=== PATIENT | female | born 1990 | race Caucasian/White ===

== ENCOUNTER 2018-01-25 05:13 | Inpatient (IN) | payer OTHER, MEDICAID ==
[2018-01-25] MEDS ORDERED: Sodium Chloride 0.9% 10 ML Syringe FLUSH PRN (05:24)
[2018-01-25] MEDS ORDERED: Sodium Chloride 0.9% 2.5 ML Syringe FLUSH PRN (05:24)
[2018-01-25] MEDS ORDERED: Oxytocin/0.9 % Sodium Chloride 30 UNIT/500 ML BAG IV SCH (05:30)
[2018-01-25] MEDS ORDERED: Citric Acid/Sodium Citrate Solution 30 ML Cup PO SCH (05:30)
[2018-01-25] MEDS: Lactated Ringers 1,000 ML IV SCH ×2 (05:46→06:19)
[2018-01-25] MEDS ORDERED: Morphine PF 1 MG/ML Amp ONE (07:22)
[2018-01-25] MEDS ORDERED: Phenylephrine/Normal Saline 100 MCG/ML 10 ML Syringe ONE (07:29)
[2018-01-25] MEDS ORDERED: Oxytocin 10 Units/1 ML SDV ONE (07:29)
[2018-01-25] MEDS ORDERED: Clindamycin Phosphate in D5W 900 MG in Premix Bag 1 BAG IV ONE ×4 (07:30→07:34)
[2018-01-25] MEDS ORDERED: fentaNYL 100 MCG/2 ML SDV IVPUSH PRN (08:26)
[2018-01-25] MEDS ORDERED: Acetaminophen/oxyCODONE 325-5 MG Tab PO PRN (08:26)
[2018-01-25] MEDS ORDERED: Nalbuphine 10 MG/ML 10 ML MDV IVPUSH PRN ×2 (08:26→09:31)
[2018-01-25] MEDS ORDERED: ePHEDrine 50 MG/ML SDV ONE (08:42)
[2018-01-25] MEDS ORDERED: Ondansetron 4 MG/2 ML SDV IV PRN (08:55)
[2018-01-25] MEDS ORDERED: Aluminum Hydroxide/Magnesium Hydroxide/Simethicone Susp 30 ML Cup PO PRN (08:55)
[2018-01-25] MEDS ORDERED: Lanolin 100% Cream 7 GM Tube TOP PRN (08:55)
[2018-01-25] MEDS ORDERED: Bisacodyl 10 MG Supp RECTAL PRN (08:55)
[2018-01-25] MEDS ORDERED: Simethicone 80 MG Tab.Chew PO PRN (08:55)
[2018-01-25] MEDS ORDERED: diphenhydrAMINE 50 MG/ML SDV IVPUSH PRN (08:55)
[2018-01-25] MEDS ORDERED: Lactated Ringers 1,000 ML IV SCH (09:00)
[2018-01-25] MEDS ORDERED: Docusate Sodium 100 MG Cap PO SCH (09:00)
--- NOTE | 2018-01-25 09:07 | PCM.OPNOTE ---
- General Post-Op/Procedure Note Date of Surgery/Procedure: 01/25/18 Operative Procedure(s): Repeat LTCS Findings: Term female APGARs 9, 9 weight 3150 gm. Intact placenta with 3V cord. Normal appearing pelvis. Pre Op Diagnosis: 39 week IUP. Previous c section, desires repeat Post-Op Diagnosis: Same Anesthesia Technique: Spinal Primary Surgeon: Zaria Santacruz Fluid Replacement, Intraop: 1,000 EBL in mLs: 500 Complications: none known Condition: Good Free Text/Narrative:: Dictation [id number]
[2018-01-25] MEDS: Ketorolac 30 MG/ML SDV IVPUSH SCH ×3 (09:21→20:59)
--- NOTE | 2018-01-25 09:29 | PCM.POSTAN ---
POST ANESTHESIA ASSESSMENT - VITAL SIGNS Pulse Rate: 48 SaO2: 97 Resp Rate: 10 Blood Pressure: 116/68 - RESPIRATORY Respiratory Status: Respiratory Rate WNL, Airway Patent, O2 Saturation Stable - CARDIOVASCULAR CV Status: Pulse Rate WNL, Blood Pressure Stable - GASTROINTESTINAL GI Status: No Symptoms - PAIN Pain Score: 0 (spinal still active) - POST OP HYDRATION Hydration Status: Adequate & Stable
[2018-01-25] MEDS ORDERED: Naloxone 0.4 MG/ML Syringe IVPUSH PRN (09:31)
--- NOTE | 2018-01-25 12:00 | OR ---
SURGEON: Zaria Santacruz M.D. DATE OF PROCEDURE: 01/25/2018 PREOPERATIVE DIAGNOSES: 1. Thirty-nine week intrauterine . 2. Previous section, desires repeat. POSTOPERATIVE DIAGNOSES: 1. Thirty-nine week intrauterine . 2. Previous section, desires repeat. PROCEDURE: Repeat low-transverse section. ANESTHESIA: Spinal. ESTIMATED BLOOD LOSS: 500 mL. FLUIDS: 2000 mL crystalloid in OR. COMPLICATIONS: None known. FINDINGS: Term female. score 9 at 1 minute, 9 at 5 minutes. Weight of 3150 g in delivery, intact placenta, 3-vessel cord. Normal-appearing pelvis. DISPOSITION: to nursery, mom in PACU stable. PROCEDURE IN DETAIL: Sarah is a 27-year-old, G2, P1, at 39 weeks' gestational age, who presents today for scheduled repeat delivery. Risks of the procedure has been discussed with her. Proper consent obtained. The patient was taken to the operating room where she underwent spinal anesthetic, was then placed in dorsal supine position with leftward tilt. SCDs to lower extremities, Aparicio to gravity. She was prepped and draped in the usual sterile fashion. Received prophylactic antibiotic. Time-out was performed. Anesthesia was tested and found to be adequate. Previous Pfannenstiel scar was now excised. Subcu tissue was incised down to the level of the rectus fascia, which was incised in midline, lateralized on either side sharply and bluntly. The superior aspect of fascia was tented upward, dissected sharply and bluntly from underlying muscles. Similar aspect performed on the inferior aspect of the fascia. Rectus muscles were in midline and peritoneum was entered. Rectus muscle and peritoneum were now lateralized bluntly. Uterine position and position palpated. Self-retaining retractor now gently placed. Uterovesical reflection was visualized. Bladder flap was created sharply and bluntly. Bladder was mobilized away from lower uterine segment. Low-transverse hysterotomy was performed. Uterine cavity was entered with blunt end of scalpel. Hysterotomy was lateralized bluntly. Amniotomy was performed, clear fluid was returned. The 's head was flexed, delivered from the pelvis. Fundal pressure was applied. The 's head was delivered followed by anterior shoulder, posterior shoulder, and remainder of body without difficulty. The 's oropharynx and nares bulb suctioned, cord was clamped x2 and cut. was handed off to attending nursing staff. Cord arterial, cord venous, cord blood sampling was obtained. The placenta was now delivered. Uterine cavity cleared of all clot and debris. Hysterotomy was repaired using 0 Vicryl in continuous running locked fashion followed by a re-imbricating layer. Area of oozing in the midline was re-plicated with [id number] suture. Hemostasis thereafter evident. Posterior aspect of the uterus inspected, no defects or hematomas found be forming. Region was well irrigated and suction dried. Colonic gutters were cleared of all clot and debris, well irrigated and suction dried. Hysterotomy was once again inspected, found to be hemostatic. Self-retaining retractor gently removed. Bladder blade was placed. Hysterotomy was again inspected and found to be hemostatic. Rectus muscles and peritoneum were now reapproximated using 0 Vicryl with inverted mattress suture technique. Anterior aspect of the muscle, posterior aspect of the fascia closely inspected. Any areas of oozing were cauterized. The rectus fascia was reapproximated using 0 Vicryl in continuous running fashion, beginning laterally on each side and tied in the midline. Subcutaneous tissue was well irrigated, suction dried. Any areas of oozing were cauterized. Subcutaneous tissue was once again copiously irrigated. Subcutaneous tissue inspected, found to be hemostatic. The skin edges were reapproximated using 3-0 Vicryl on a Eusebio needle in subcuticular fashion followed by re-imbrication with 1/2-inch Steri-Strips and Mastisol. Uterus remained firm. Sponge, instrument, needle counts correct x2. Hemostasis appeared evident. The patient tolerated the procedure well overall. She will go to PACU in stable condition an to nursery. AMENA / LAZARO /[id number]
[2018-01-25] MEDS ORDERED: Promethazine 25 MG/ML SDV IM ONE (13:44)
--- NOTE | 2018-01-25 20:54 | PCM.SN ---
- Free Text/Narrative Note: Doing well overall, pain is controlled. Had nausea earlier, but this has subsided. She is tolerating liquids. VS are stable. Encouraged ambulation this evening. Continue postoperative cares.
[2018-01-26] MEDS: Ketorolac 30 MG/ML SDV IVPUSH SCH ×2 (02:58→09:18)
--- NOTE | 2018-01-26 08:09 | PCM.PNPP ---
<Juliana Anand - Last Filed: 01/26/18 08:05> - General Info Date of Service: 01/26/18 Functional Status: Reports: Pain Controlled, Tolerating Diet, Ambulating, Urinating - Review of Systems General: Denies: Fever, Weakness, Fatigue Pulmonary: Denies: Shortness of Breath, Pleuritic Chest Pain, Cough Cardiovascular: Denies: Chest Pain, Palpitations, Dyspnea on Exertion Gastrointestinal: Denies: Abdominal Pain Genitourinary: Denies: Dysuria - General Info Date of Service: 01/26/18 - Patient Data Vital Signs - Most Recent: Last Vital Signs Temp 36.5 C 01/26/18 05:00 Pulse 55 L 01/26/18 07:00 Resp 16 01/26/18 07:00 BP 94/50 L 01/26/18 05:00 Pulse Ox 98 01/26/18 07:00 Weight - Most Recent: 69.003 kg I&O - Last 24 Hours: Intake & Output 01/25/18 01/26/18 01/26/18 22:59 06:59 14:59 Intake Total 827 500 Output Total 700 3450 Balance 127 -2950 Lab Results - Last 24 Hours: Laboratory Results - last 24 hr 01/25/18 01/26/18 Range/Units 08:20 05:10 Hgb 9.4 L (12.0-16.0) g/dL Hct 29.9 L (36.0-46.0) % Cord ABG pH 7.366 (7.18-7.38) Cord ABG Base Excess -2 (-10--2) Cord VBG pH 7.368 (7.25-7.45) Cord VBG Base Excess -3 (-10--2) Med Orders - Current: Current Medications Al Hydroxide/Mg Hydroxide (Mag-Al Plus) 30 ml PO Q8H PRN PRN Reason: Heartburn Bisacodyl (Dulcolax) 10 mg RECTAL .ONCE PRN PRN Reason: Constipation Citric Acid/Sodium Citrate (Bicitra Solution) 30 ml PO .ONCE [facility] Last Admin: 01/25/18 07:54 Dose: 30 ml Diphenhydramine HCl (Benadryl) 25 mg IVPUSH Q6H PRN PRN Reason: Itching or Nausea Emollient Ointment (Lansinoh Hpa) 0 gm TOP ASDIRECTED PRN PRN Reason: Sore Nipples Last Admin: 01/25/18 10:18 Dose: 7 gm Fentanyl (Sublimaze) 50 mcg IVPUSH Q5M PRN PRN Reason: Pain (severe 7-10) Stop: 01/26/18 08:27 Lactated Ringer's (Ringers, Lactated) 1,000 mls @ 500 mls/hr IV .BOLUS [facility] Last Admin: 01/25/18 06:19 Dose: 500 mls/hr Oxytocin/Sodium Chloride (Oxytocin 30 Unit/500 Ml-Ns) 30 unit in 500 mls @ 250 mls/hr IV TITRATE [facility] Lactated Ringer's (Ringers, Lactated) 1,000 mls @ 125 mls/hr IV ASDIRECTED [facility] Last Admin: 01/25/18 11:02 Dose: 125 mls/hr Ibuprofen (Motrin) 800 mg PO Q8H PRN PRN Reason: mild pain or fever Ketorolac Tromethamine (Toradol) 30 mg IVPUSH Q6H [facility] Stop: 01/26/18 09:01 Last Admin: 01/26/18 02:58 Dose: 30 mg Nalbuphine HCl (Nubain) 2.5 mg IVPUSH Q3H PRN PRN Reason: Pruritis Stop: 01/26/18 08:27 Last Admin: 01/25/18 10:19 Dose: 2.5 mg Nalbuphine HCl (Nubain) 5 mg IVPUSH Q3H PRN PRN Reason: Pruritis Stop: 01/26/18 09:32 Naloxone HCl (Narcan) 0.1 mg IVPUSH ONETIME PRN PRN Reason: Respiratory Depression Stop: 01/26/18 09:32 Ondansetron HCl (Zofran) 4 mg IV Q4H PRN PRN Reason: Nausea/Vomiting Last Admin: 01/25/18 12:36 Dose: 4 mg Oxycodone/Acetaminophen (Percocet 325-5 Mg) 1 tab PO ONETIME PRN PRN Reason: Pain (moderate 4-6) Oxycodone/Acetaminophen (Percocet 325-5 Mg) 1 tab PO Q4H PRN PRN Reason: Pain (moderate 4-6) Oxycodone/Acetaminophen (Percocet 325-5 Mg) 2 tab PO Q4H PRN PRN Reason: Pain (moderate 4-6) Simethicone (Simethicone) 80 mg PO Q4H PRN PRN Reason: Gas Sodium Chloride (Saline Flush) 10 ml FLUSH ASDIRECTED PRN PRN Reason: Keep Vein Open Sodium Chloride (Saline Flush) 2.5 ml FLUSH ASDIRECTED PRN PRN Reason: Keep Vein Open Discontinued Medications Docusate Sodium (Colace) 100 mg PO BID [facility] Last Admin: 01/25/18 13:35 Dose: Not Given Ephedrine Sulfate (Ephedrine Sulfate) Confirm Administered Dose 50 mg .ROUTE .STK-MED ONE Stop: 01/25/18 08:43 Clindamycin Phosphate 900 mg/ (Premix) 50 mls @ 100 mls/hr IV ASDIRECTED ONE Stop: 01/25/18 07:59 Last Admin: 01/25/18 13:37 Dose: Not Given Clindamycin Phosphate 900 mg/ (Premix) 50 mls @ 100 mls/hr IV ASDIRECTED ONE Stop: 01/25/18 07:59 Last Admin: 01/25/18 13:35 Dose: Not Given Morphine Sulfate (Duramorph Pf) Confirm Administered Dose 1 mg .ROUTE .STK-MED ONE Stop: 01/25/18 07:23 Oxytocin (Pitocin) Confirm Administered Dose 20 unit .ROUTE .STK-MED ONE Stop: 01/25/18 07:30 Phenylephrine HCl (Phenylephrine In Ns 100 Mcg/Ml) Confirm Administered Dose 1 mg .ROUTE .STK-MED ONE Stop: 01/25/18 07:30 Promethazine HCl (Phenergan) 25 mg IM ONETIME ONE Stop: 01/25/18 13:45 Last Admin: 01/25/18 18:26 Dose: Not Given - Interaction Infant Disposition, : in Room with Family Infant Interaction: Holding Feeding: Breastfed Infant; Nursed Well, Continues to Breastfeed Support Person: - Recovery Exam Fundal Tone: Firm Fundal Level: 2 Fingerbreadths Below Umbilicus Fundal Placement: Midline Lochia Amount: Scant Lochia Color: Rubra/Red Perineum Description: Intact, Minimal Bruising/Swelling Episiotomy/Laceration: None Bladder Status: Indwelling Catheter in Place Urinary Elimination: Indwelling Catheter - Exam General: Alert, Oriented Neck: Supple Lungs: Clear to Auscultation, Normal Respiratory Effort Cardiovascular: Regular Rate, Regular Rhythm GI/Abdominal Exam: Normal Bowel Sounds, Soft, Non-Tender, No Distention Extremities: Normal Inspection, Non-Tender, Normal Capillary Refill, Pedal Edema (trace) Skin: Warm, Dry, Intact Psy/Mental Status: Alert - Problem List Review Problem List Initiated/Reviewed/Updated: Yes - Assessment Assessment:: POD #1 s/p RLTCS with minimal pain and lochia. Breast feeding well. Encouraged patient to shower and ambulate halls. - Plan Plan:: Continue routine cares. <Zaria Santacruz - Last Filed: 01/26/18 08:38> - Patient Data Vital Signs - Most Recent: Last Vital Signs Temp 36.5 C 01/26/18 05:00 Pulse 63 01/26/18 08:00 Resp 16 01/26/18 08:00 BP 94/50 L 01/26/18 05:00 Pulse Ox 98 01/26/18 08:00 I&O - Last 24 Hours: Intake & Output 01/25/18 01/26/18 01/26/18 22:59 06:59 14:59 Intake Total 827 500 Output Total 700 3450 Balance 127 -2950 Lab Results - Last 24 Hours: Laboratory Results - last 24 hr 01/25/18 01/26/18 Range/Units 08:20 05:10 Hgb 9.4 L (12.0-16.0) g/dL Hct 29.9 L (36.0-46.0) % Cord ABG pH 7.366 (7.18-7.38) Cord ABG Base Excess -2 (-10--2) Cord VBG pH 7.368 (7.25-7.45) Cord VBG Base Excess -3 (-10--2) Med Orders - Current: Current Medications Al Hydroxide/Mg Hydroxide (Mag-Al Plus) 30 ml PO Q8H PRN PRN Reason: Heartburn Bisacodyl (Dulcolax) 10 mg RECTAL .ONCE PRN PRN Reason: Constipation Citric Acid/Sodium Citrate (Bicitra Solution) 30 ml PO .ONCE [facility] Last Admin: 01/25/18 07:54 Dose: 30 ml Diphenhydramine HCl (Benadryl) 25 mg IVPUSH Q6H PRN PRN Reason: Itching or Nausea Emollient Ointment (Lansinoh Hpa) 0 gm TOP ASDIRECTED PRN PRN Reason: Sore Nipples Last Admin: 01/25/18 10:18 Dose: 7 gm Lactated Ringer's (Ringers, Lactated) 1,000 mls @ 500 mls/hr IV .BOLUS [facility] Last Admin: 01/25/18 06:19 Dose: 500 mls/hr Oxytocin/Sodium Chloride (Oxytocin 30 Unit/500 Ml-Ns) 30 unit in 500 mls @ 250 mls/hr IV TITRATE [facility] Lactated Ringer's (Ringers, Lactated) 1,000 mls @ 125 mls/hr IV ASDIRECTED [facility] Last Admin: 01/25/18 11:02 Dose: 125 mls/hr Ibuprofen (Motrin) 800 mg PO Q8H PRN PRN Reason: mild pain or fever Ketorolac Tromethamine (Toradol) 30 mg IVPUSH Q6H [facility] Stop: 01/26/18 09:01 Last Admin: 01/26/18 02:58 Dose: 30 mg Nalbuphine HCl (Nubain) 5 mg IVPUSH Q3H PRN PRN Reason: Pruritis Stop: 01/26/18 09:32 Naloxone HCl (Narcan) 0.1 mg IVPUSH ONETIME PRN PRN Reason: Respiratory Depression Stop: 01/26/18 09:32 Ondansetron HCl (Zofran) 4 mg IV Q4H PRN PRN Reason: Nausea/Vomiting Last Admin: 01/25/18 12:36 Dose: 4 mg Oxycodone/Acetaminophen (Percocet 325-5 Mg) 1 tab PO ONETIME PRN PRN Reason: Pain (moderate 4-6) Oxycodone/Acetaminophen (Percocet 325-5 Mg) 1 tab PO Q4H PRN PRN Reason: Pain (moderate 4-6) Oxycodone/Acetaminophen (Percocet 325-5 Mg) 2 tab PO Q4H PRN PRN Reason: Pain (moderate 4-6) Simethicone (Simethicone) 80 mg PO Q4H PRN PRN Reason: Gas Sodium Chloride (Saline Flush) 10 ml FLUSH ASDIRECTED PRN PRN Reason: Keep Vein Open Sodium Chloride (Saline Flush) 2.5 ml FLUSH ASDIRECTED PRN PRN Reason: Keep Vein Open Discontinued Medications Docusate Sodium (Colace) 100 mg PO BID [facility] Last Admin: 01/25/18 13:35 Dose: Not Given Ephedrine Sulfate (Ephedrine Sulfate) Confirm Administered Dose 50 mg .ROUTE .STK-MED ONE Stop: 01/25/18 08:43 Fentanyl (Sublimaze) 50 mcg IVPUSH Q5M PRN PRN Reason: Pain (severe 7-10) Stop: 01/26/18 08:27 Clindamycin Phosphate 900 mg/ (Premix) 50 mls @ 100 mls/hr IV ASDIRECTED ONE Stop: 01/25/18 07:59 Last Admin: 01/25/18 13:37 Dose: Not Given Clindamycin Phosphate 900 mg/ (Premix) 50 mls @ 100 mls/hr IV ASDIRECTED ONE Stop: 01/25/18 07:59 Last Admin: 01/25/18 13:35 Dose: Not Given Morphine Sulfate (Duramorph Pf) Confirm Administered Dose 1 mg .ROUTE .STK-MED ONE Stop: 01/25/18 07:23 Nalbuphine HCl (Nubain) 2.5 mg IVPUSH Q3H PRN PRN Reason: Pruritis Stop: 01/26/18 08:27 Last Admin: 01/25/18 10:19 Dose: 2.5 mg Oxytocin (Pitocin) Confirm Administered Dose 20 unit .ROUTE .STK-MED ONE Stop: 01/25/18 07:30 Phenylephrine HCl (Phenylephrine In Ns 100 Mcg/Ml) Confirm Administered Dose 1 mg .ROUTE .STK-MED ONE Stop: 01/25/18 07:30 Promethazine HCl (Phenergan) 25 mg IM ONETIME ONE Stop: 01/25/18 13:45 Last Admin: 01/25/18 18:26 Dose: Not Given - My Orders Last 24 Hours: My Active Orders 01/25/18 08:55 Patient Status [ADT] Routine Ambulate [RC] PER UNIT ROUTINE Communication Order [RC] PER UNIT ROUTINE Communication Order [RC] PER UNIT ROUTINE Intake and Output [RC] Q4H May Shower [RC] ASDIRECTED Notify Provider Intake and Out [RC] ASDIRECTED Notify Provider Vital Signs [RC] ASDIRECTED RT Incentive Spirometry [RC] Q2HWA Vital Signs [RC] PER UNIT ROUTINE Acetaminophen/oxyCODONE [Percocet 325-5 MG] 1 tab PO Q4H PRN Acetaminophen/oxyCODONE [Percocet 325-5 MG] 2 tab PO Q4H PRN Alum Hydrox/Mag Hydrox/Simeth [Mag-Al Plus] 30 ml PO Q8H PRN Bisacodyl [Dulcolax] 10 mg RECTAL .ONCE PRN Ibuprofen [Motrin] 800 mg PO Q8H PRN Lanolin [Lansinoh HPA] See Dose Instructions TOP ASDIRECTED PRN Ondansetron [Zofran] 4 mg IV Q4H PRN Simethicone 80 mg PO Q4H PRN diphenhydrAMINE [Benadryl] 25 mg IVPUSH Q6H PRN Abdominal Binder [OM.PC] Routine Assess Lochia [WOMSER] Per Unit Routine Assess Uterine Involution [WOMSER] Per Unit Routine Breast Pump [WOMSER] Per Unit Routine Heat Therapy [OM.PC] Routine Ice Therapy [OM.PC] Routine Peripheral IV Discontinue [OM.PC] Routine Sequential Compression Device [OM.PC] Per Unit Routine 01/25/18 09:00 Ketorolac [Toradol] 30 mg IVPUSH Q6H Lactated Ringers [Ringers, Lactated] 1,000 ml IV ASDIRECTED 01/25/18 Lunch Regular Diet [DIET] - Plan Plan:: Patient seen and examined--agree with above. Of note, patient can only take liquid or crushed medication.
--- NOTE | 2018-01-26 14:04 | PCM48HPAN ---
Post Anesthesia Note - EVALUATION WITHIN 48HRS OF ANESTHETIC Vital Signs in Normal Range: Yes Patient Participated in Evaluation: Yes Respiratory Function Stable: Yes Airway Patent: Yes Cardiovascular Function Stable: Yes Hydration Status Stable: Yes Pain Control Satisfactory: Yes Nausea and Vomiting Control Satisfactory: Yes Mental Status Recovered: Yes Pulse Rate: 48 Resp Rate: 17 Blood Pressure: 116/68
[2018-01-26] MEDS: Acetaminophen/oxyCODONE 325-5 MG Tab PO PRN ×3 (15:10→23:27)
[2018-01-27] MEDS: Ibuprofen 800 MG Tab PO PRN ×2 (00:38→12:37)
[2018-01-27] MEDS ORDERED: Temazepam 15 MG Cap PO ONE (01:38)
[2018-01-27] MEDS: Acetaminophen/oxyCODONE 325-5 MG Tab PO PRN ×2 (04:38→09:52)
--- NOTE | 2018-01-27 09:25 | PCM.PNPP ---
- General Info Date of Service: 01/27/18 Functional Status: Reports: Pain Controlled, Tolerating Diet, Ambulating, Urinating - Review of Systems General: Reports: Fatigue. Denies: Fever, Weakness Pulmonary: Denies: Shortness of Breath Cardiovascular: Denies: Chest Pain, Palpitations, Lightheadedness Gastrointestinal: Reports: Abdominal Pain (incisional, controlled with oral pain meds), Flatus. Denies: Nausea, Vomiting Genitourinary: Denies: Flank Pain Neurological: Denies: Dizziness, Headache Psychiatric: Reports: No Symptoms - General Info Date of Service: 01/27/18 - Patient Data Vital Signs - Most Recent: Last Vital Signs Temp 36.6 C 01/27/18 08:02 Pulse 79 01/27/18 08:02 Resp 16 01/27/18 08:02 BP 103/63 01/27/18 08:02 Pulse Ox 98 01/27/18 08:02 Weight - Most Recent: 69.003 kg Med Orders - Current: Current Medications Al Hydroxide/Mg Hydroxide (Mag-Al Plus) 30 ml PO Q8H PRN PRN Reason: Heartburn Bisacodyl (Dulcolax) 10 mg RECTAL .ONCE PRN PRN Reason: Constipation Citric Acid/Sodium Citrate (Bicitra Solution) 30 ml PO .ONCE [facility] Last Admin: 01/25/18 07:54 Dose: 30 ml Diphenhydramine HCl (Benadryl) 25 mg IVPUSH Q6H PRN PRN Reason: Itching or Nausea Emollient Ointment (Lansinoh Hpa) 0 gm TOP ASDIRECTED PRN PRN Reason: Sore Nipples Last Admin: 01/25/18 10:18 Dose: 7 gm Lactated Ringer's (Ringers, Lactated) 1,000 mls @ 500 mls/hr IV .BOLUS [facility] Last Admin: 01/25/18 06:19 Dose: 500 mls/hr Oxytocin/Sodium Chloride (Oxytocin 30 Unit/500 Ml-Ns) 30 unit in 500 mls @ 250 mls/hr IV TITRATE [facility] Lactated Ringer's (Ringers, Lactated) 1,000 mls @ 125 mls/hr IV ASDIRECTED [facility] Last Admin: 01/25/18 11:02 Dose: 125 mls/hr Ibuprofen (Motrin) 800 mg PO Q8H PRN PRN Reason: mild pain or fever Last Admin: 01/27/18 00:38 Dose: 800 mg Ondansetron HCl (Zofran) 4 mg IV Q4H PRN PRN Reason: Nausea/Vomiting Last Admin: 01/25/18 12:36 Dose: 4 mg Oxycodone/Acetaminophen (Percocet 325-5 Mg) 1 tab PO ONETIME PRN PRN Reason: Pain (moderate 4-6) Oxycodone/Acetaminophen (Percocet 325-5 Mg) 1 tab PO Q4H PRN PRN Reason: Pain (moderate 4-6) Last Admin: 01/27/18 04:38 Dose: 1 tab Oxycodone/Acetaminophen (Percocet 325-5 Mg) 2 tab PO Q4H PRN PRN Reason: Pain (moderate 4-6) Last Admin: 01/26/18 23:27 Dose: 2 tab Simethicone (Simethicone) 80 mg PO Q4H PRN PRN Reason: Gas Sodium Chloride (Saline Flush) 10 ml FLUSH ASDIRECTED PRN PRN Reason: Keep Vein Open Sodium Chloride (Saline Flush) 2.5 ml FLUSH ASDIRECTED PRN PRN Reason: Keep Vein Open Discontinued Medications Docusate Sodium (Colace) 100 mg PO BID [facility] Last Admin: 01/25/18 13:35 Dose: Not Given Ephedrine Sulfate (Ephedrine Sulfate) Confirm Administered Dose 50 mg .ROUTE .STK-MED ONE Stop: 01/25/18 08:43 Fentanyl (Sublimaze) 50 mcg IVPUSH Q5M PRN PRN Reason: Pain (severe 7-10) Stop: 01/26/18 08:27 Clindamycin Phosphate 900 mg/ (Premix) 50 mls @ 100 mls/hr IV ASDIRECTED ONE Stop: 01/25/18 07:59 Last Admin: 01/25/18 13:37 Dose: Not Given Clindamycin Phosphate 900 mg/ (Premix) 50 mls @ 100 mls/hr IV ASDIRECTED ONE Stop: 01/25/18 07:59 Last Admin: 01/25/18 13:35 Dose: Not Given Ketorolac Tromethamine (Toradol) 30 mg IVPUSH Q6H [facility] Stop: 01/26/18 09:01 Last Admin: 01/26/18 09:18 Dose: 30 mg Morphine Sulfate (Duramorph Pf) Confirm Administered Dose 1 mg .ROUTE .STK-MED ONE Stop: 01/25/18 07:23 Nalbuphine HCl (Nubain) 2.5 mg IVPUSH Q3H PRN PRN Reason: Pruritis Stop: 01/26/18 08:27 Last Admin: 01/25/18 10:19 Dose: 2.5 mg Nalbuphine HCl (Nubain) 5 mg IVPUSH Q3H PRN PRN Reason: Pruritis Stop: 01/26/18 09:32 Naloxone HCl (Narcan) 0.1 mg IVPUSH ONETIME PRN PRN Reason: Respiratory Depression Stop: 01/26/18 09:32 Oxytocin (Pitocin) Confirm Administered Dose 20 unit .ROUTE .STK-MED ONE Stop: 01/25/18 07:30 Phenylephrine HCl (Phenylephrine In Ns 100 Mcg/Ml) Confirm Administered Dose 1 mg .ROUTE .STK-MED ONE Stop: 01/25/18 07:30 Promethazine HCl (Phenergan) 25 mg IM ONETIME ONE Stop: 01/25/18 13:45 Last Admin: 01/25/18 18:26 Dose: Not Given Temazepam (Restoril) 15 mg PO ONETIME ONE Stop: 01/27/18 01:39 Last Admin: 01/27/18 02:21 Dose: 15 mg - Interaction Disposition, : [place] in Room with Family Interaction: Holding Infant Feeding: Breastfed ; Nursed Well, Continues to Breastfeed Support Person: - Recovery Exam Fundal Tone: Firm Fundal Level: 2 Fingerbreadths Below Umbilicus Fundal Placement: Midline Lochia Amount: Scant Lochia Color: Rubra/Red Perineum Description: Intact, Minimal Bruising/Swelling Episiotomy/Laceration: None Bladder Status: Voiding Urinary Elimination: Voided - Exam General: Alert, Oriented Lungs: Normal Respiratory Effort Cardiovascular: Regular Rate, Regular Rhythm GI/Abdominal Exam: Normal Bowel Sounds, Soft Extremities: Pedal Edema (1+). No: Hank's Sign Skin: Warm, Dry, Intact Wound/Incisions: Healing Well, No Drainage. No: Erythema Psy/Mental Status: Alert - Problem List & Annotations (1) delivery delivered SNOMED Code(s): 387377330 Code(s): O82 - ENCOUNTER FOR DELIVERY WITHOUT INDICATION Status: Acute Current Visit: Yes - Problem List Review Problem List Initiated/Reviewed/Updated: Yes - My Orders Last 24 Hours: My Active Orders 01/27/18 09:22 Ready for Discharge [RC] PER UNIT ROUTINE - Assessment Assessment:: POD #2 s/p RLTCS - Plan Plan:: Patient is doing well overall--she is ready to go home today. Discharge instructions reviewed. Infection and bleeding warnings reviewed. Follow up at [facility] 2 and 6 weeks. Discharge to home today.
== END 2018-01-27 13:10 | disposition home or self-care (01) | DRG 766 ==
LOC: MW.OB 05:13
PROVIDERS: ADMIT Obstetrics & Gynecology; ATTEND Obstetrics & Gynecology
PROC: 10D00Z1 Extraction of Products of Conception, Low, Open Approach (ICD-10-PCS; principal; 2018-01-25)
DX: O34.211 Maternal care for low transverse scar from previous cesarean delivery (principal); Z3A.39 39 weeks gestation of pregnancy; Z37.0 Single live birth
CPT/HCPCS: 36415; 59025; 82803; 85014; 85018; 85027; 86850; 86900; 86901; A9270-GY; J1885; J2274; J2300; J2370; J2405; J2590; J7120

== ENCOUNTER 2021-03-14 05:16 | Inpatient (IN) | payer BC, OTHER ==
[2021-03-14] MEDS: Lactated Ringers 1,000 ML IV SCH ×2 (05:50→06:51)
[2021-03-14] MEDS ORDERED: Sodium Chloride 0.9% 2.5 ML Syringe FLUSH PRN (05:56)
[2021-03-14] MEDS ORDERED: Sodium Chloride 0.9% 10 ML Syringe FLUSH PRN (05:56)
[2021-03-14] MEDS ORDERED: Citric Acid/Sodium Citrate Solution 30 ML Cup PO ONE (05:56)
[2021-03-14] MEDS ORDERED: Sodium Chloride 0.9% 10 ML SDV IV PRN (05:56)
[2021-03-14] MEDS ORDERED: Clindamycin Phosphate in D5W 900 MG in Premix Bag 1 BAG IV ONE ×2 (05:56)
[2021-03-14] MEDS ORDERED: Oxytocin/0.9 % Sodium Chloride 30 UNIT/500 ML BAG IV SCH (06:00)
[2021-03-14] MEDS ORDERED: Ondansetron 4 MG/2 ML SDV ONE (07:23)
[2021-03-14] MEDS ORDERED: Oxytocin 10 Units/1 ML SDV ONE (07:23)
[2021-03-14] MEDS ORDERED: Ketorolac 30 MG/ML SDV ONE (07:23)
[2021-03-14] MEDS ORDERED: Morphine PF 10 MG/10 ML SDV ONE (07:24)
[2021-03-14] MEDS ORDERED: fentaNYL 100 MCG/2 ML SDV ONE (07:24)
[2021-03-14] MEDS ORDERED: Octyl 2-Cyanoacrylate 1 Tube ONE (07:37)
--- NOTE | 2021-03-14 07:42 | PCM.PREANE ---
Preanesthetic Assessment - Anesthesia/Transfusion/Family Hx Anesthesia History: Prior Anesthesia Reaction Family History of Anesthesia Reaction: No Transfusion History: No Prior Transfusion(s) Type of Transfusion Reactions: Reports: Unknown - Review of Systems General: No Symptoms Pulmonary: No Symptoms Cardiovascular: No Symptoms Gastrointestinal: No Symptoms Neurological: No Symptoms Other: Reports: None - Physical Assessment NPO Status Date: 03/14/21 NPO Status Time: 00:00 Height: 5 ft 4.17 in Weight: 153 lb 0.013 oz ASA Class: 2 Mental Status: Alert & Oriented x3 Airway Class: Mallampati = 2 Dentition: Reports: Normal Dentition ROM/Head Extension: Full Lungs: Clear to Auscultation, Normal Respiratory Effort Cardiovascular: Regular Rate, Regular Rhythm - Lab Values: Laboratory Last Values Blood Type A POSITIVE 03/13/21 10:36 Antibody Screen NEGATIVE 03/13/21 10:36 - Allergies Allergies/Adverse Reactions: Allergies Allergy/AdvReac Type Severity Reaction Status Date / Time Penicillins Allergy "sister Verified 03/14/21 06:26 reacted to it" - Blood Blood Available: Yes Product(s) Available: PRBC, FFP, Platelets - Anesthesia Plan Pre-Op Medication Ordered: None - Acknowledgements Anesthesia Type Planned: Spinal Pt an Appropriate Candidate for the Planned Anesthesia: Yes Alternatives and Risks of Anesthesia Discussed w Pt/Guardian: Yes Pt/Guardian Understands and Agrees with Anesthesia Plan: Yes PreAnesthesia Questionnaire HEENT History: Reports: Other (See Below) Other HEENT History: wears glasses, contacts Cardiovascular History: Reports: Other (See Below) Other Cardiovascular History: currently has a blood clot in a varicose vein right leg- is taking ASA 81mg and is using heat and elevation Respiratory History: Reports: None Gastrointestinal History: Reports: Hemorrhoids, Other (See Below) Other Gastrointestinal History: new this Genitourinary History: Reports: None PLANT ETIOLOGIST History: Reports: , Spontaneous Musculoskeletal History: Reports: Fracture Other Musculoskeletal History: hx of fx foot and finger (approx 10-15 yr ago) Neurological History: Reports: None Psychiatric History: Reports: None Endocrine/Metabolic History: Reports: None Hematologic History: Reports: None Immunologic History: Reports: None Oncologic (Cancer) History: Reports: None Dermatologic History: Reports: None - Infectious Disease History Infectious Disease History: Reports: Chicken Pox, Influenza - Past Surgical History Head Surgeries/Procedures: Reports: None HEENT Surgical History: Reports: None Other HEENT Surgeries/Procedures: [place] tooth extraction on 2011 Cardiovascular Surgical History: Reports: None Respiratory Surgical History: Reports: None GI Surgical History: Reports: None Female Surgical History: Reports: Section Other Female Surgeries/Procedures: previous x2 Endocrine Surgical History: Reports: None Neurological Surgical History: Reports: None Musculoskeletal Surgical History: Reports: None Oncologic Surgical History: Reports: None Dermatological Surgical History: Reports: None - SUBSTANCE USE Tobacco Use Status *Q: Never Tobacco User Second Hand Smoke Exposure: Yes Recreational Drug Use History: No - HOME MEDS Home Medications: Home Meds Pnv No.95/Ferrous Fum/Folic AC [ Vitamin Tablet] 1 tab PO DAILY 01/20/18 [History] Aspirin [Adult Low Dose Aspirin EC] 81 mg PO DAILY 03/07/21 [History] - CURRENT (IN HOUSE) MEDS Current Meds: Current Medications Oxytocin/Sodium Chloride (Oxytocin 30 Unit/500 Ml-Ns) 30 unit in 500 mls @ 250 mls/hr IV TITRATE FARAZ Lactated Ringer's (Ringers, Lactated) 1,000 mls @ 500 mls/hr IV BOLUS FARAZ Last Admin: 03/14/21 06:51 Dose: 999 mls/hr Documented by: Sodium Chloride (Sodium Chloride 0.9% 10 Ml Syringe) 10 ml FLUSH ASDIRECTED PRN PRN Reason: Keep Vein Open Sodium Chloride (Sodium Chloride 0.9% 2.5 Ml Syringe) 2.5 ml FLUSH ASDIRECTED PRN PRN Reason: Keep Vein Open Sodium Chloride (Sodium Chloride 0.9% 10 Ml Sdv) 10 ml IV ASDIRECTED PRN PRN Reason: IV Use Discontinued Medications Citric Acid/Sodium Citrate (Citric Acid/Sodium Citrate Solution 30 Ml Cup) 30 ml PO ONETIME ONE Stop: 03/14/21 05:57 Fentanyl (Fentanyl 100 Mcg/2 Ml Sdv) Confirm Administered Dose 100 mcg .ROUTE .STK-MED ONE Stop: 03/14/21 07:25 Clindamycin Phosphate 900 mg/ (Premix) 50 mls @ 100 mls/hr IV ASDIRECTED ONE Stop: 03/14/21 06:25 Ketorolac Tromethamine (Ketorolac 30 Mg/Ml Sdv) Confirm Administered Dose 30 mg .ROUTE .STK-MED ONE Stop: 03/14/21 07:24 Miscellaneous Medication (Phenylephrine Hcl In 0.9% Nacl 1 Mg/10 Ml Syringe) Confirm Administered Dose 1 mg .ROUTE .STK-MED ONE Stop: 03/14/21 07:24 Morphine Sulfate (Morphine Pf 10 Mg/10 Ml Sdv) Confirm Administered Dose 10 mg .ROUTE .STK-MED ONE Stop: 03/14/21 07:25 Octyl Cyanoacrylate (Octyl 2-Cyanoacrylate 1 Tube) Confirm Administered Dose 1 applic .ROUTE .ST-MED ONE Stop: 03/14/21 07:38 Ondansetron HCl (Ondansetron 4 Mg/2 Ml Sdv) Confirm Administered Dose 4 mg .ROUTE .STBadoo-MED ONE Stop: 03/14/21 07:24 Oxytocin (Oxytocin 10 Units/1 Ml Sdv) Confirm Administered Dose 30 unit .ROUTE .STBadoo-MED ONE Stop: 03/14/21 07:24
[2021-03-14] MEDS ORDERED: Oxytocin 10 Units/1 ML SDV IM PRN (09:09)
[2021-03-14] MEDS ORDERED: Ondansetron 4 MG/2 ML SDV IVPUSH PRN (09:09)
[2021-03-14] MEDS ORDERED: Bisacodyl 10 MG Supp RECTAL PRN (09:09)
[2021-03-14] MEDS ORDERED: Methylergonovine 0.2 MG/1 ML Amp IM PRN (09:09)
[2021-03-14] MEDS ORDERED: Tranexamic Acid 1,000 MG in Sodium Chloride 0.9% 100 ML IV PRN (09:09)
[2021-03-14] MEDS ORDERED: Acetaminophen/oxyCODONE 325-5 MG Tab PO PRN (09:09)
[2021-03-14] MEDS ORDERED: Lanolin 100% Cream 7 GM Tube TOP PRN (09:09)
[2021-03-14] MEDS ORDERED: Misoprostol 200 MCG Tab RECTAL PRN (09:09)
[2021-03-14] MEDS ORDERED: Lactated Ringers 1,000 ML IV SCH (09:15)
--- NOTE | 2021-03-14 09:15 | PCM.OPNOTE ---
- General Post-Op/Procedure Note Date of Surgery/Procedure: 03/14/21 Operative Procedure(s): Section x3 Findings: Viable male apgars 8,9. Weight 3180 grams. Delivery intact placenta with 3 V cord Pre Op Diagnosis: 39- week IUP. previous c section, desires repeat. exacerbated thrombophlebitis of right lower extremity Post-Op Diagnosis: Same Anesthesia Technique: Spinal Primary Surgeon: Zaria Santacruz Software Support Technician: Michelle Miner Fluid Replacement, Intraop: 1,500 EBL in mLs: 600 Complications: None known Condition: Stable
[2021-03-14] MEDS: diphenhydrAMINE 50 MG/ML SDV IVPUSH PRN ×2 (10:08→16:31)
--- NOTE | 2021-03-14 10:24 | PCM48HPAN ---
Post Anesthesia Note - EVALUATION WITHIN 48HRS OF ANESTHETIC Vital Signs in Normal Range: Yes Patient Participated in Evaluation: Yes Respiratory Function Stable: Yes Airway Patent: Yes Cardiovascular Function Stable: Yes Hydration Status Stable: Yes Pain Control Satisfactory: Yes Nausea and Vomiting Control Satisfactory: Yes Mental Status Recovered: Yes
--- NOTE | 2021-03-14 10:46 | OR ---
SURGEON: Zaria Santacruz M.D. DATE OF PROCEDURE: 03/14/2021 PREOPERATIVE DIAGNOSES: 1. A 39-week intrauterine . 2. Previous section, desires repeat. 3. Exacerbated thrombophlebitis of the lower extremities. POSTOPERATIVE DIAGNOSES: 1. A 39-week intrauterine . 2. Previous section, desires repeat. 3. Exacerbated thrombophlebitis of the lower extremities. PROCEDURES: Repeat low transverse section. PRIMARY SURGEON: Zaria Santacruz M.D. ANESTHESIA: Spinal. ESTIMATED BLOOD LOSS: 600 mL. FLUIDS: 1500 mL of crystalloid. COMPLICATIONS: None known. FINDINGS: Viable male. scores of 8 at one minute, 9 at five minutes. Weight of 7 pounds. Delivery of intact placenta, 3-vessel cord. DISPOSITION: Infant to nursery, mom in PACU, stable. PROCEDURE DETAILS: Sarah is a 30-year-old female who presents today for scheduled repeat delivery. For the most part, routine . However, in the last few weeks, she has severe varicosities of lower extremities, and she has actually developed a fairly severe thrombophlebitis of the right lower extremity that has responded somewhat to baby aspirin and heat. However, at this time, we opted to proceed with delivery given the severe symptoms. Risks of procedure have been discussed. Proper consent was obtained. The patient was taken to the operating room where she underwent spinal anesthetic, was placed in a dorsal supine position with a leftward tilt. Aparicio to gravity. She was prepped and draped in the usual sterile fashion. SCDs to the lower extremities. A time-out was performed. Anesthesia was tested, found to be adequate. Previous Pfannenstiel scar was now excised. Subcutaneous tissue was incised down to the level of the rectus fascia, which was incised in midline, and lateralized on either side sharply and bluntly. Superior aspect of fascia was tented upward, dissected sharply and bluntly from underlying muscles. In similar aspect, this was performed on the inferior aspect of the fascia. Rectus muscle was in midline. Peritoneum was entered. Rectus muscles and peritoneum were now lateralized bluntly. Uterine position and position palpated. Self-retaining retractor was now gently placed. A bladder flap was created sharply and bluntly. Bladder was mobilized away from lower uterine segment. Low transverse hysterotomy was now performed. Uterine cavity was entered with blunt-ended scalpel. Amniotomy was performed. Clear fluid was returned. 's head was flexed. He was found to be in OP position, delivered from the pelvis, and the head was delivered followed by anterior shoulder, posterior shoulder, and remainder of body. 's oropharynx and nares were bulb suctioned. After a delay, cord was clamped x2 and cut. was handed off to attending ion implant machine operator and nursery staff. Cord arterial, cord venous, and cord blood sampling were obtained. The placenta now delivered. Uterine cavity was cleared of all clot and debris. Hysterotomy was now repaired using 0 Vicryl in continuous running locked fashion followed by a re-imbricating layer. The posterior aspect of the uterus was inspected. No defects or hematomas found be forming. Region was well irrigated and suction dried. Uterus returned to the abdominal cavity. Colonic gutters were cleared of all clot and debris, well irrigated and suction dried. There was an area of oozing at midline of hysterotomy, reapproximated with [id number] suture. Hemostasis thereafter evident other than some serosal oozing, which was cauterized. Self-retaining retractor now was gently placed. Bladder blade was placed. Hysterotomy once again inspected and found to be hemostatic. Rectus muscle and peritoneum were now reapproximated using 0 Vicryl with inverted mattress suture technique. Anterior aspect of the muscle, posterior aspect of the fascia closely inspected. Any areas of oozing were cauterized. The rectus fascia was reapproximated beginning laterally on either side and meeting in the midline with 0 Vicryl in continuous running fashion. Subcutaneous tissue was well irrigated, suction dried. Any areas of oozing were cauterized. Skin edges were reapproximated using 3-0 Vicryl in subcuticular fashion with Eusebio needle and reimbricated the incision with half-inch Steri- Strips and Mastisol. Sponge, instrument, and needle counts were correct x2. The patient tolerated the procedure well overall. She will go to PACU in stable condition, infant to nursery. AMENA / LAZARO /[id number] JORDAN
[2021-03-14] MEDS: Simethicone 80 MG Tab.Chew PO SCH ×2 (12:00→17:54)
[2021-03-14] MEDS ORDERED: Naloxone 0.4 MG/ML Syringe IVPUSH ONE (13:47)
[2021-03-14] MEDS: Ketorolac 30 MG/ML SDV IVPUSH SCH ×2 (14:43→20:46)
[2021-03-14] MEDS: Enoxaparin 40 MG/0.4 ML Syringe SUBCUT SCH (16:30)
[2021-03-14] MEDS: Docusate Sodium 100 MG Cap PO SCH (20:47)
[2021-03-15] MEDS: Simethicone 80 MG Tab.Chew PO SCH ×4 (00:16→17:01)
[2021-03-15] MEDS ORDERED: Naloxone 0.4 MG/ML Syringe IVPUSH PRN ×2 (00:31→00:33)
[2021-03-15] MEDS: Ketorolac 30 MG/ML SDV IVPUSH SCH ×2 (02:59→08:35)
--- NOTE | 2021-03-15 07:36 | PCM.PNPP ---
<Michelle Miner - Last Filed: 03/15/21 07:40> - General Info Date of Service: 03/15/21 Admission Dx/Problem (Free Text): Scheduled Section Subjective Update: Pain controlled overnight. Had some itching on hands and feet overnight, not current. Valle catheter removed this morning. Has not urinated since removal. Ambulating well and tolerating a diet. Denies dizziness and lightheadedness. . - Review of Systems General: Reports: No Symptoms HEENT: Reports: No Symptoms Pulmonary: Reports: No Symptoms Cardiovascular: Reports: No Symptoms Gastrointestinal: Reports: No Symptoms Genitourinary: Reports: No Symptoms Musculoskeletal: Reports: No Symptoms Skin: Reports: No Symptoms Neurological: Reports: No Symptoms Psychiatric: Reports: No Symptoms - General Info Date of Service: 03/15/21 - Patient Data Vital Signs - Most Recent: Last Vital Signs Temp 36.3 C 03/15/21 04:00 Pulse 56 L 03/15/21 06:00 Resp 16 03/15/21 06:00 BP 104/61 03/15/21 04:00 Pulse Ox 99 03/15/21 06:00 Weight - Most Recent: 69.4 kg I&O - Last 24 Hours: Intake & Output 03/14/21 03/15/21 03/15/21 22:59 06:59 14:59 Output Total 200 2000 Balance -200 -2000 Lab Results - Last 24 Hours: Laboratory Results - last 24 hr 03/14/21 03/15/21 Range/Units 08:24 04:50 Hgb 9.7 L (12.0-16.0) g/dL Hct 29.8 L (36.0-46.0) % Cord ABG pH 7.260 (7.18-7.38) Cord ABG Base Excess -1 H (-10--2) Cord VBG pH 7.284 (7.25-7.45) Cord VBG Base Excess -2 (-10--2) Med Orders - Current: Current Medications Bisacodyl (Bisacodyl 10 Mg Supp) 10 mg RECTAL ONETIME PRN PRN Reason: Constipation Diphenhydramine HCl (Diphenhydramine 50 Mg/Ml Sdv) 25 mg IVPUSH Q6H PRN PRN Reason: Itching or Nausea Last Admin: 03/14/21 16:31 Dose: 25 mg Documented by: Docusate Sodium (Docusate Sodium 100 Mg Cap) 100 mg PO BID [facility] Last Admin: 03/14/21 20:47 Dose: 100 mg Documented by: Emollient Ointment (Lanolin 100% Cream 7 Gm Tube) 0 gm TOP ASDIRECTED PRN PRN Reason: Sore Nipples Last Admin: 03/15/21 06:14 Dose: 1 tube Documented by: Enoxaparin Sodium (Enoxaparin 40 Mg/0.4 Ml Syringe) 40 mg SUBCUT Q24H [facility] Last Admin: 03/14/21 16:30 Dose: 40 mg Documented by: Oxytocin/Sodium Chloride (Oxytocin 30 Unit/500 Ml-Ns) 30 unit in 500 mls @ 250 mls/hr IV TITRATE [facility] Lactated Ringer's (Ringers, Lactated) 1,000 mls @ 500 mls/hr IV BOLUS [facility] Last Admin: 03/14/21 06:51 Dose: 999 mls/hr Documented by: Lactated Ringer's (Ringers, Lactated) 1,000 mls @ 125 mls/hr IV ASDIRECTED [facility] Tranexamic Acid 1,000 mg/ (Sodium Chloride) 110 mls @ 660 mls/hr IV ONETIME PRN PRN Reason: Bleeding Ibuprofen (Ibuprofen 800 Mg Tab) 800 mg PO Q8H PRN PRN Reason: mild pain or fever Ketorolac Tromethamine (Ketorolac 30 Mg/Ml Sdv) 30 mg IVPUSH Q6H [facility] Stop: 03/15/21 08:01 Last Admin: 03/15/21 02:59 Dose: 30 mg Documented by: Methylergonovine Maleate (Methylergonovine 0.2 Mg/1 Ml Amp) 0.2 mg IM ONETIME PRN PRN Reason: Excessive Vaginal Bleeding Misoprostol (Misoprostol 200 Mcg Tab) 1,000 mcg RECTAL ONETIME PRN PRN Reason: excessive bleeding Naloxone HCl (Naloxone 0.4 Mg/Ml Syringe) 0.2 mg IVPUSH Q6H PRN PRN Reason: Itching Last Admin: 03/15/21 00:58 Dose: 0.2 mg Documented by: Ondansetron HCl (Ondansetron 4 Mg/2 Ml Sdv) 4 mg IVPUSH Q4H PRN PRN Reason: Nausea/Vomiting Last Admin: 03/14/21 14:23 Dose: 4 mg Documented by: Oxycodone/Acetaminophen (Acetaminophen/Oxycodone 325-5 Mg Tab) 1 tab PO Q4H PRN PRN Reason: Pain (severe 7-10) Oxycodone/Acetaminophen (Acetaminophen/Oxycodone 325-5 Mg Tab) 2 tab PO Q4H PRN PRN Reason: Pain (severe 7-10) Oxytocin (Oxytocin 10 Units/1 Ml Sdv) 10 unit IM ASDIRECTED PRN PRN Reason: Excessive Vaginal Bleeding Simethicone (Simethicone 80 Mg Tab.Chew) 160 mg PO QID [facility] Last Admin: 03/15/21 06:14 Dose: 160 mg Documented by: Sodium Chloride (Sodium Chloride 0.9% 10 Ml Syringe) 10 ml FLUSH ASDIRECTED PRN PRN Reason: Keep Vein Open Sodium Chloride (Sodium Chloride 0.9% 2.5 Ml Syringe) 2.5 ml FLUSH ASDIRECTED PRN PRN Reason: Keep Vein Open Sodium Chloride (Sodium Chloride 0.9% 10 Ml Sdv) 10 ml IV ASDIRECTED PRN PRN Reason: IV Use Discontinued Medications Citric Acid/Sodium Citrate (Citric Acid/Sodium Citrate Solution 30 Ml Cup) 30 ml PO ONETIME ONE Stop: 03/14/21 05:57 Fentanyl (Fentanyl 100 Mcg/2 Ml Sdv) Confirm Administered Dose 100 mcg .ROUTE .STK-MED ONE Stop: 03/14/21 07:25 Clindamycin Phosphate 900 mg/ (Premix) 50 mls @ 100 mls/hr IV ASDIRECTED ONE Stop: 03/14/21 06:25 Ketorolac Tromethamine (Ketorolac 30 Mg/Ml Sdv) Confirm Administered Dose 30 mg .ROUTE .STK-MED ONE Stop: 03/14/21 07:24 Miscellaneous Medication (Phenylephrine Hcl In 0.9% Nacl 1 Mg/10 Ml Syringe) Confirm Administered Dose 1 mg .ROUTE .STK-MED ONE Stop: 03/14/21 07:24 Morphine Sulfate (Morphine Pf 10 Mg/10 Ml Sdv) Confirm Administered Dose 10 mg .ROUTE .STK-MED ONE Stop: 03/14/21 07:25 Naloxone HCl (Naloxone 0.4 Mg/Ml Syringe) 0.2 mg IVPUSH ONETIME ONE Stop: 03/14/21 13:48 Last Admin: 03/14/21 14:12 Dose: 0.2 mg Documented by: Naloxone HCl (Naloxone 0.4 Mg/Ml Syringe) 0.4 mg IVPUSH Q6H PRN PRN Reason: Itching Octyl Cyanoacrylate (Octyl 2-Cyanoacrylate 1 Tube) Confirm Administered Dose 1 applic .ROUTE .STK-MED ONE Stop: 03/14/21 07:38 Ondansetron HCl (Ondansetron 4 Mg/2 Ml Sdv) Confirm Administered Dose 4 mg .ROUTE .STK-MED ONE Stop: 03/14/21 07:24 Oxytocin (Oxytocin 10 Units/1 Ml Sdv) Confirm Administered Dose 30 unit .ROUTE .STK-MED ONE Stop: 03/14/21 07:24 - Interaction Disposition, : in Room with Family Interaction: Holding Infant Infant Feeding: Breastfed Infant; Nursed Well Support Person: - Recovery Exam Fundal Tone: Firm Fundal Placement: Midline Episiotomy/Laceration: None Urinary Elimination: Other (see below) (valle cath removed this morning) - Exam General: Alert, Oriented Neck: Supple Lungs: Clear to Auscultation, Normal Respiratory Effort Cardiovascular: Regular Rate, Regular Rhythm GI/Abdominal Exam: Soft, Tender Extremities: Normal Inspection, Normal Range of Motion, Non-Tender Skin: Warm, Intact Wound/Incisions: Dressing Dry and Intact, No Drainage Neurological: No New Focal Deficit Psy/Mental Status: Alert, Normal Affect, Normal Mood - Problem List Review Problem List Initiated/Reviewed/Updated: Yes - Assessment Assessment:: 30-year-old female s/p section x3. Had some itching overnight, now controlled. No other concerns. Hgb 9.7. Blood type A+, antibody negative, rubella immune, covid negative. - Plan Plan:: - Continue to monitor bleeding and incision dressing - - Encourage ambulation - Will follow-up on urination status <Zaria Santacruz - Last Filed: 03/15/21 08:57> - Patient Data Vital Signs - Most Recent: Last Vital Signs Temp 36.1 C 03/15/21 08:00 Pulse 75 03/15/21 08:00 Resp 18 03/15/21 08:00 BP 90/53 L 03/15/21 08:00 Pulse Ox 95 09/03/21 08:00 I&O - Last 24 Hours: Intake & Output 03/14/21 03/15/21 03/15/21 22:59 06:59 14:59 Output Total 200 2000 Balance -200 -2000 Lab Results - Last 24 Hours: Laboratory Results - last 24 hr 03/14/21 03/15/21 Range/Units 08:24 04:50 Hgb 9.7 L (12.0-16.0) g/dL Hct 29.8 L (36.0-46.0) % Cord ABG pH 7.260 (7.18-7.38) Cord ABG Base Excess -1 H (-10--2) Cord VBG pH 7.284 (7.25-7.45) Cord VBG Base Excess -2 (-10--2) Med Orders - Current: Current Medications Bisacodyl (Bisacodyl 10 Mg Supp) 10 mg RECTAL ONETIME PRN PRN Reason: Constipation Diphenhydramine HCl (Diphenhydramine 50 Mg/Ml Sdv) 25 mg IVPUSH Q6H PRN PRN Reason: Itching or Nausea Last Admin: 03/14/21 16:31 Dose: 25 mg Documented by: Docusate Sodium (Docusate Sodium 100 Mg Cap) 100 mg PO BID [facility] Last Admin: 03/15/21 08:35 Dose: 100 mg Documented by: Emollient Ointment (Lanolin 100% Cream 7 Gm Tube) 0 gm TOP ASDIRECTED PRN PRN Reason: Sore Nipples Last Admin: 03/15/21 06:14 Dose: 1 tube Documented by: Enoxaparin Sodium (Enoxaparin 40 Mg/0.4 Ml Syringe) 40 mg SUBCUT Q24H [facility] Last Admin: 03/14/21 16:30 Dose: 40 mg Documented by: Oxytocin/Sodium Chloride (Oxytocin 30 Unit/500 Ml-Ns) 30 unit in 500 mls @ 250 mls/hr IV TITRATE [facility] Lactated Ringer's (Ringers, Lactated) 1,000 mls @ 500 mls/hr IV BOLUS [facility] Last Admin: 03/14/21 06:51 Dose: 999 mls/hr Documented by: Lactated Ringer's (Ringers, Lactated) 1,000 mls @ 125 mls/hr IV ASDIRECTED [facility] Tranexamic Acid 1,000 mg/ (Sodium Chloride) 110 mls @ 660 mls/hr IV ONETIME PRN PRN Reason: Bleeding Ibuprofen (Ibuprofen 800 Mg Tab) 800 mg PO Q8H PRN PRN Reason: mild pain or fever Methylergonovine Maleate (Methylergonovine 0.2 Mg/1 Ml Amp) 0.2 mg IM ONETIME PRN PRN Reason: Excessive Vaginal Bleeding Misoprostol (Misoprostol 200 Mcg Tab) 1,000 mcg RECTAL ONETIME PRN PRN Reason: excessive bleeding Naloxone HCl (Naloxone 0.4 Mg/Ml Syringe) 0.2 mg IVPUSH Q6H PRN PRN Reason: Itching Last Admin: 03/15/21 00:58 Dose: 0.2 mg Documented by: Ondansetron HCl (Ondansetron 4 Mg/2 Ml Sdv) 4 mg IVPUSH Q4H PRN PRN Reason: Nausea/Vomiting Last Admin: 03/14/21 14:23 Dose: 4 mg Documented by: Oxycodone/Acetaminophen (Acetaminophen/Oxycodone 325-5 Mg Tab) 1 tab PO Q4H PRN PRN Reason: Pain (severe 7-10) Oxycodone/Acetaminophen (Acetaminophen/Oxycodone 325-5 Mg Tab) 2 tab PO Q4H PRN PRN Reason: Pain (severe 7-10) Oxytocin (Oxytocin 10 Units/1 Ml Sdv) 10 unit IM ASDIRECTED PRN PRN Reason: Excessive Vaginal Bleeding Simethicone (Simethicone 80 Mg Tab.Chew) 160 mg PO QID [facility] Last Admin: 03/15/21 06:14 Dose: 160 mg Documented by: Sodium Chloride (Sodium Chloride 0.9% 10 Ml Syringe) 10 ml FLUSH ASDIRECTED PRN PRN Reason: Keep Vein Open Sodium Chloride (Sodium Chloride 0.9% 2.5 Ml Syringe) 2.5 ml FLUSH ASDIRECTED PRN PRN Reason: Keep Vein Open Sodium Chloride (Sodium Chloride 0.9% 10 Ml Sdv) 10 ml IV ASDIRECTED PRN PRN Reason: IV Use Discontinued Medications Citric Acid/Sodium Citrate (Citric Acid/Sodium Citrate Solution 30 Ml Cup) 30 ml PO ONETIME ONE Stop: 03/14/21 05:57 Fentanyl (Fentanyl 100 Mcg/2 Ml Sdv) Confirm Administered Dose 100 mcg .ROUTE .STK-MED ONE Stop: 03/14/21 07:25 Clindamycin Phosphate 900 mg/ (Premix) 50 mls @ 100 mls/hr IV ASDIRECTED ONE Stop: 03/14/21 06:25 Ketorolac Tromethamine (Ketorolac 30 Mg/Ml Sdv) Confirm Administered Dose 30 mg .ROUTE .STK-MED ONE Stop: 03/14/21 07:24 Ketorolac Tromethamine (Ketorolac 30 Mg/Ml Sdv) 30 mg IVPUSH Q6H [facility] Stop: 03/15/21 08:01 Last Admin: 03/15/21 08:35 Dose: 30 mg Documented by: Miscellaneous Medication (Phenylephrine Hcl In 0.9% Nacl 1 Mg/10 Ml Syringe) Con firm Administered Dose 1 mg .ROUTE .STK-MED ONE Stop: 03/14/21 07:24 Morphine Sulfate (Morphine Pf 10 Mg/10 Ml Sdv) Confirm Administered Dose 10 mg .ROUTE .STK-MED ONE Stop: 03/14/21 07:25 Naloxone HCl (Naloxone 0.4 Mg/Ml Syringe) 0.2 mg IVPUSH ONETIME ONE Stop: 03/14/21 13:48 Last Admin: 03/14/21 14:12 Dose: 0.2 mg Documented by: Naloxone HCl (Naloxone 0.4 Mg/Ml Syringe) 0.4 mg IVPUSH Q6H PRN PRN Reason: Itching Octyl Cyanoacrylate (Octyl 2-Cyanoacrylate 1 Tube) Confirm Administered Dose 1 applic .ROUTE .STK-MED ONE Stop: 03/14/21 07:38 Ondansetron HCl (Ondansetron 4 Mg/2 Ml Sdv) Confirm Administered Dose 4 mg .ROUTE .STK-MED ONE Stop: 03/14/21 07:24 Oxytocin (Oxytocin 10 Units/1 Ml Sdv) Confirm Administered Dose 30 unit .ROUTE .STK-MED ONE Stop: 03/14/21 07:24 - Problem List & Annotations (1) delivery delivered SNOMED Code(s): 917424863 Code(s): O82 - ENCOUNTER FOR DELIVERY WITHOUT INDICATION Status: Acute Current Visit: No - Problem List Review Problem List Initiated/Reviewed/Updated: Yes - My Orders Last 24 Hours: My Active Orders 03/14/21 09:00 Notify Provider Vital Signs [RC] PRN 03/14/21 09:09 Patient Status [ADT] Routine Ambulate [RC] PER UNIT ROUTINE Antiembolic Devices [RC] PER UNIT ROUTINE Communication Order [RC] PER UNIT ROUTINE Communication Order [RC] PER UNIT ROUTINE Communication Order [RC] Per Unit Routine May Shower [RC] ASDIRECTED Notify Provider Intake and Out [RC] ASDIRECTED Notify Provider Vital Signs [RC] ASDIRECTED RT Incentive Spirometry [RC] Q2HWA Vital Signs [RC] Q1H Acetaminophen/oxyCODONE [Percocet 325-5 MG] 1 tab PO Q4H PRN Acetaminophen/oxyCODONE [Percocet 325-5 MG] 2 tab PO Q4H PRN Ibuprofen [Motrin] 800 mg PO Q8H PRN Lanolin [Lansinoh HPA] See Dose Instructions TOP ASDIRECTED PRN Methylergonovine [Methergine] 0.2 mg IM ONETIME PRN Ondansetron [Zofran] 4 mg IVPUSH Q4H PRN Oxytocin [Pitocin] 10 unit IM ASDIRECTED PRN Tranexamic Acid [Cyklokapron] 1,000 mg Sodium Chloride 0.9% [Normal Saline] 100 ml IV ONETIME bisacodyL [Dulcolax] 10 mg RECTAL ONETIME PRN diphenhydrAMINE [Benadryl] 25 mg IVPUSH Q6H PRN miSOPROStoL [Cytotec] 1,000 mcg RECTAL ONETIME PRN Abdominal Binder [OM.PC] Routine Assess Lochia [WOMSER] Per Unit Routine Assess Uterine Involution [WOMSER] Per Unit Routine Breast Pump [WOMSER] Per Unit Routine Heat Therapy [OM.PC] Routine Ice Therapy [OM.PC] Routine Peripheral IV Discontinue [OM.PC] Routine Sequential Compression Device [OM.PC] Per Unit Routine 03/14/21 09:15 Lactated Ringers [Ringers, Lactated] 1,000 ml IV ASDIRECTED 03/14/21 Lunch Regular Diet [DIET] 03/14/21 12:00 Simethicone 160 mg PO QID 03/14/21 16:00 Enoxaparin [Lovenox] 40 mg SUBCUT Q24H 03/14/21 21:00 Docusate Sodium [Colace] 100 mg PO BID - Plan Plan:: Patient doing well overall. Seen and examined--has voided spontaneously. Continue postoperative cares/ cares. Anticipate discharge tomorrow. Discharge instructions reviewed. Follow up at [facility] 2 weeks
[2021-03-15] MEDS: Docusate Sodium 100 MG Cap PO SCH ×2 (08:35→21:19)
[2021-03-15] MEDS ORDERED: Naloxone 0.4 MG/ML SDV IVPUSH PRN (12:00)
[2021-03-15] MEDS: Acetaminophen/oxyCODONE 325-5 MG Tab PO PRN ×3 (12:42→21:20)
[2021-03-15] MEDS: Ibuprofen 800 MG Tab PO PRN (15:19)
[2021-03-15] MEDS: Enoxaparin 40 MG/0.4 ML Syringe SUBCUT SCH (16:59)
[2021-03-16] MEDS: Simethicone 80 MG Tab.Chew PO SCH ×2 (00:06→05:33)
[2021-03-16] MEDS: Ibuprofen 800 MG Tab PO PRN ×2 (00:10→07:57)
[2021-03-16] MEDS: Acetaminophen/oxyCODONE 325-5 MG Tab PO PRN ×3 (01:36→09:36)
--- NOTE | 2021-03-16 08:54 | PCM.PNPP ---
<Michelle Miner - Last Filed: 03/16/21 08:48> - General Info Date of Service: 03/16/21 Admission Dx/Problem (Free Text): Scheduled Section Subjective Update: No concerns overnight. Pain controlled with medication. Wants to go home today. Functional Status: Reports: Pain Controlled, Tolerating Diet, Ambulating, Urinating - Review of Systems General: Reports: No Symptoms HEENT: Reports: No Symptoms Pulmonary: Reports: No Symptoms Cardiovascular: Reports: No Symptoms Gastrointestinal: Reports: No Symptoms Genitourinary: Reports: No Symptoms Musculoskeletal: Reports: No Symptoms Skin: Reports: No Symptoms Neurological: Reports: No Symptoms Psychiatric: Reports: No Symptoms - General Info Date of Service: 03/16/21 - Patient Data Vital Signs - Most Recent: Last Vital Signs Temp 35.8 C L 03/16/21 08:00 Pulse 54 L 03/16/21 08:00 Resp 15 03/16/21 08:00 BP 100/58 L 03/16/21 08:00 Pulse Ox 96 03/16/21 08:00 Weight - Most Recent: 153 lb 0.013 oz Med Orders - Current: Current Medications Bisacodyl (Bisacodyl 10 Mg Supp) 10 mg RECTAL ONETIME PRN PRN Reason: Constipation Diphenhydramine HCl (Diphenhydramine 50 Mg/Ml Sdv) 25 mg IVPUSH Q6H PRN PRN Reason: Itching or Nausea Last Admin: 03/14/21 16:31 Dose: 25 mg Documented by: Docusate Sodium (Docusate Sodium 100 Mg Cap) 100 mg PO BID [facility] Last Admin: 03/15/21 21:19 Dose: 100 mg Documented by: Emollient Ointment (Lanolin 100% Cream 7 Gm Tube) 0 gm TOP ASDIRECTED PRN PRN Reason: Sore Nipples Last Admin: 03/15/21 06:14 Dose: 1 tube Documented by: Oxytocin/Sodium Chloride (Oxytocin 30 Unit/500 Ml-Ns) 30 unit in 500 mls @ 250 mls/hr IV TITRATE [facility] Lactated Ringer's (Ringers, Lactated) 1,000 mls @ 500 mls/hr IV BOLUS [facility] Last Admin: 03/14/21 06:51 Dose: 999 mls/hr Documented by: Lactated Ringer's (Ringers, Lactated) 1,000 mls @ 125 mls/hr IV ASDIRECTED [facility] Tranexamic Acid 1,000 mg/ (Sodium Chloride) 110 mls @ 660 mls/hr IV ONETIME PRN PRN Reason: Bleeding Ibuprofen (Ibuprofen 800 Mg Tab) 800 mg PO Q8H PRN PRN Reason: mild pain or fever Last Admin: 03/16/21 07:57 Dose: 800 mg Documented by: Methylergonovine Maleate (Methylergonovine 0.2 Mg/1 Ml Amp) 0.2 mg IM ONETIME PRN PRN Reason: Excessive Vaginal Bleeding Misoprostol (Misoprostol 200 Mcg Tab) 1,000 mcg RECTAL ONETIME PRN PRN Reason: excessive bleeding Naloxone HCl (Naloxone 0.4 Mg/Ml Sdv) 0.2 mg IVPUSH Q6H PRN PRN Reason: Itching Ondansetron HCl (Ondansetron 4 Mg/2 Ml Sdv) 4 mg IVPUSH Q4H PRN PRN Reason: Nausea/Vomiting Last Admin: 03/14/21 14:23 Dose: 4 mg Documented by: Oxycodone/Acetaminophen (Acetaminophen/Oxycodone 325-5 Mg Tab) 1 tab PO Q4H PRN PRN Reason: Pain (severe 7-10) Last Admin: 03/16/21 05:34 Dose: 1 tab Documented by: Oxycodone/Acetaminophen (Acetaminophen/Oxycodone 325-5 Mg Tab) 2 tab PO Q4H PRN PRN Reason: Pain (severe 7-10) Oxytocin (Oxytocin 10 Units/1 Ml Sdv) 10 unit IM ASDIRECTED PRN PRN Reason: Excessive Vaginal Bleeding Simethicone (Simethicone 80 Mg Tab.Chew) 160 mg PO QID [facility] Last Admin: 03/16/21 05:33 Dose: 160 mg Documented by: Sodium Chloride (Sodium Chloride 0.9% 10 Ml Syringe) 10 ml FLUSH ASDIRECTED PRN PRN Reason: Keep Vein Open Sodium Chloride (Sodium Chloride 0.9% 2.5 Ml Syringe) 2.5 ml FLUSH ASDIRECTED PRN PRN Reason: Keep Vein Open Sodium Chloride (Sodium Chloride 0.9% 10 Ml Sdv) 10 ml IV ASDIRECTED PRN PRN Reason: IV Use Discontinued Medications Citric Acid/Sodium Citrate (Citric Acid/Sodium Citrate Solution 30 Ml Cup) 30 ml PO ONETIME ONE Stop: 03/14/21 05:57 Enoxaparin Sodium (Enoxaparin 40 Mg/0.4 Ml Syringe) 40 mg SUBCUT Q24H [facility] Last Admin: 03/15/21 16:59 Dose: 40 mg Documented by: Fentanyl (Fentanyl 100 Mcg/2 Ml Sdv) Confirm Administered Dose 100 mcg .ROUTE .STK-MED ONE Stop: 03/14/21 07:25 Clindamycin Phosphate 900 mg/ (Premix) 50 mls @ 100 mls/hr IV ASDIRECTED ONE Stop: 03/14/21 06:25 Ketorolac Tromethamine (Ketorolac 30 Mg/Ml Sdv) Confirm Administered Dose 30 mg .ROUTE .STK-MED ONE Stop: 03/14/21 07:24 Ketorolac Tromethamine (Ketorolac 30 Mg/Ml Sdv) 30 mg IVPUSH Q6H [facility] Stop: 03/15/21 08:01 Last Admin: 03/15/21 08:35 Dose: 30 mg Documented by: Miscellaneous Medication (Phenylephrine Hcl In 0.9% Nacl 1 Mg/10 Ml Syringe) Con firm Administered Dose 1 mg .ROUTE .STK-MED ONE Stop: 03/14/21 07:24 Morphine Sulfate (Morphine Pf 10 Mg/10 Ml Sdv) Confirm Administered Dose 10 mg .ROUTE .STK-MED ONE Stop: 03/14/21 07:25 Naloxone HCl (Naloxone 0.4 Mg/Ml Syringe) 0.2 mg IVPUSH ONETIME ONE Stop: 03/14/21 13:48 Last Admin: 03/14/21 14:12 Dose: 0.2 mg Documented by: Naloxone HCl (Naloxone 0.4 Mg/Ml Syringe) 0.4 mg IVPUSH Q6H PRN PRN Reason: Itching Naloxone HCl (Naloxone 0.4 Mg/Ml Syringe) 0.2 mg IVPUSH Q6H PRN PRN Reason: Itching Last Admin: 03/15/21 00:58 Dose: 0.2 mg Documented by: Octyl Cyanoacrylate (Octyl 2-Cyanoacrylate 1 Tube) Confirm Administered Dose 1 applic .ROUTE .STK-MED ONE Stop: 03/14/21 07:38 Ondansetron HCl (Ondansetron 4 Mg/2 Ml Sdv) Confirm Administered Dose 4 mg .ROUTE .STK-MED ONE Stop: 03/14/21 07:24 Oxytocin (Oxytocin 10 Units/1 Ml Sdv) Confirm Administered Dose 30 unit .ROUTE .STK-MED ONE Stop: 03/14/21 07:24 - Infant Interaction Infant Disposition, : [place] in Room with Family Interaction: Holding Infant Feeding: Breastfed Infant; Nursed Well Support Person: - Recovery Exam Fundal Tone: Firm Fundal Placement: Midline Episiotomy/Laceration: None Bladder Status: Voiding Urinary Elimination: Voided Other Urinary Elimination, : Waiting for post-catheter void. - Exam General: Alert, Oriented HEENT: Pupils Equal, Pupils Reactive Neck: Supple Lungs: Clear to Auscultation, Normal Respiratory Effort Cardiovascular: Regular Rate, Regular Rhythm GI/Abdominal Exam: Normal Bowel Sounds, Soft, Tender Extremities: Normal Inspection, Normal Range of Motion, Non-Tender, No Pedal Edema Skin: Warm, Dry, Intact Wound/Incisions: Healing Well (steri-strips in place, light serosanguineous discharge) Neurological: No New Focal Deficit Psy/Mental Status: Alert, Normal Affect, Normal Mood - Problem List Review Problem List Initiated/Reviewed/Updated: Yes - Assessment Assessment:: 30-year-old female ppd #2 s/p section x3. No other concerns. Hgb 9.7. Blood type A+, antibody negative, rubella immune, covid negative. - Plan Plan:: Patient doing well overall. Continue postoperative cares/ cares. Will discharge today. Discharge instructions reviewed. Follow up at [facility] 2 weeks <Lakia Cameron - Last Filed: 03/16/21 09:49> - Patient Data Vital Signs - Most Recent: Last Vital Signs Temp 96.5 F L 03/16/21 08:00 Pulse 54 L 03/16/21 08:00 Resp 15 03/16/21 08:00 BP 100/58 L 03/16/21 08:00 Pulse Ox 96 03/16/21 08:00 Med Orders - Current: Current Medications Bisacodyl (Bisacodyl 10 Mg Supp) 10 mg RECTAL ONETIME PRN PRN Reason: Constipation Diphenhydramine HCl (Diphenhydramine 50 Mg/Ml Sdv) 25 mg IVPUSH Q6H PRN PRN Reason: Itching or Nausea Last Admin: 03/14/21 16:31 Dose: 25 mg Documented by: Docusate Sodium (Docusate Sodium 100 Mg Cap) 100 mg PO BID [facility] Last Admin: 03/16/21 09:36 Dose: 100 mg Documented by: Emollient Ointment (Lanolin 100% Cream 7 Gm Tube) 0 gm TOP ASDIRECTED PRN PRN Reason: Sore Nipples Last Admin: 03/15/21 06:14 Dose: 1 tube Documented by: Oxytocin/Sodium Chloride (Oxytocin 30 Unit/500 Ml-Ns) 30 unit in 500 mls @ 250 mls/hr IV TITRATE [facility] Lactated Ringer's (Ringers, Lactated) 1,000 mls @ 500 mls/hr IV BOLUS [facility] Last Admin: 03/14/21 06:51 Dose: 999 mls/hr Documented by: Lactated Ringer's (Ringers, Lactated) 1,000 mls @ 125 mls/hr IV ASDIRECTED [facility] Tranexamic Acid 1,000 mg/ (Sodium Chloride) 110 mls @ 660 mls/hr IV ONETIME PRN PRN Reason: Bleeding Ibuprofen (Ibuprofen 800 Mg Tab) 800 mg PO Q8H PRN PRN Reason: mild pain or fever Last Admin: 03/16/21 07:57 Dose: 800 mg Documented by: Methylergonovine Maleate (Methylergonovine 0.2 Mg/1 Ml Amp) 0.2 mg IM ONETIME PRN PRN Reason: Excessive Vaginal Bleeding Misoprostol (Misoprostol 200 Mcg Tab) 1,000 mcg RECTAL ONETIME PRN PRN Reason: excessive bleeding Naloxone HCl (Naloxone 0.4 Mg/Ml Sdv) 0.2 mg IVPUSH Q6H PRN PRN Reason: Itching Ondansetron HCl (Ondansetron 4 Mg/2 Ml Sdv) 4 mg IVPUSH Q4H PRN PRN Reason: Nausea/Vomiting Last Admin: 03/14/21 14:23 Dose: 4 mg Documented by: Oxycodone/Acetaminophen (Acetaminophen/Oxycodone 325-5 Mg Tab) 1 tab PO Q4H PRN PRN Reason: Pain (severe 7-10) Last Admin: 03/16/21 09:36 Dose: 1 tab Documented by: Oxycodone/Acetaminophen (Acetaminophen/Oxycodone 325-5 Mg Tab) 2 tab PO Q4H PRN PRN Reason: Pain (severe 7-10) Oxytocin (Oxytocin 10 Units/1 Ml Sdv) 10 unit IM ASDIRECTED PRN PRN Reason: Excessive Vaginal Bleeding Simethicone (Simethicone 80 Mg Tab.Chew) 160 mg PO QID [facility] Last Admin: 03/16/21 05:33 Dose: 160 mg Documented by: Sodium Chloride (Sodium Chloride 0.9% 10 Ml Syringe) 10 ml FLUSH ASDIRECTED PRN PRN Reason: Keep Vein Open Sodium Chloride (Sodium Chloride 0.9% 2.5 Ml Syringe) 2.5 ml FLUSH ASDIRECTED PRN PRN Reason: Keep Vein Open Sodium Chloride (Sodium Chloride 0.9% 10 Ml Sdv) 10 ml IV ASDIRECTED PRN PRN Reason: IV Use Discontinued Medications Citric Acid/Sodium Citrate (Citric Acid/Sodium Citrate Solution 30 Ml Cup) 30 ml PO ONETIME ONE Stop: 03/14/21 05:57 Enoxaparin Sodium (Enoxaparin 40 Mg/0.4 Ml Syringe) 40 mg SUBCUT Q24H [facility] Last Admin: 03/15/21 16:59 Dose: 40 mg Documented by: Fentanyl (Fentanyl 100 Mcg/2 Ml Sdv) Confirm Administered Dose 100 mcg .ROUTE .STK-MED ONE Stop: 03/14/21 07:25 Clindamycin Phosphate 900 mg/ (Premix) 50 mls @ 100 mls/hr IV ASDIRECTED ONE Stop: 03/14/21 06:25 Ketorolac Tromethamine (Ketorolac 30 Mg/Ml Sdv) Confirm Administered Dose 30 mg .ROUTE .STK-MED ONE Stop: 03/14/21 07:24 Ketorolac Tromethamine (Ketorolac 30 Mg/Ml Sdv) 30 mg IVPUSH Q6H [facility] Stop: 03/15/21 08:01 Last Admin: 03/15/21 08:35 Dose: 30 mg Documented by: Miscellaneous Medication (Phenylephrine Hcl In 0.9% Nacl 1 Mg/10 Ml Syringe) Confirm Administered Dose 1 mg .ROUTE .STK-MED ONE Stop: 03/14/21 07:24 Morphine Sulfate (Morphine Pf 10 Mg/10 Ml Sdv) Confirm Administered Dose 10 mg .ROUTE .STK-MED ONE Stop: 03/14/21 07:25 Naloxone HCl (Naloxone 0.4 Mg/Ml Syringe) 0.2 mg IVPUSH ONETIME ONE Stop: 03/14/21 13:48 Last Admin: 03/14/21 14:12 Dose: 0.2 mg Documented by: Naloxone HCl (Naloxone 0.4 Mg/Ml Syringe) 0.4 mg IVPUSH Q6H PRN PRN Reason: Itching Naloxone HCl (Naloxone 0.4 Mg/Ml Syringe) 0.2 mg IVPUSH Q6H PRN PRN Reason: Itching Last Admin: 03/15/21 00:58 Dose: 0.2 mg Documented by: Octyl Cyanoacrylate (Octyl 2-Cyanoacrylate 1 Tube) Confirm Administered Dose 1 applic .ROUTE .STK-MED ONE Stop: 03/14/21 07:38 Ondansetron HCl (Ondansetron 4 Mg/2 Ml Sdv) Confirm Administered Dose 4 mg .ROUTE .STK-MED ONE Stop: 03/14/21 07:24 Oxytocin (Oxytocin 10 Units/1 Ml Sdv) Confirm Administered Dose 30 unit .ROUTE .STK-MED ONE Stop: 03/14/21 07:24 - Plan Plan:: Agree with above. Discharge instructions reviewed. Patient has postoperative appointment scheduled in two weeks.
[2021-03-16] MEDS: Docusate Sodium 100 MG Cap PO SCH (09:36)
== END 2021-03-16 11:30 | disposition home or self-care (01) | DRG 540 ==
LOC: MW.OB 05:16
PROVIDERS: ADMIT Obstetrics & Gynecology; ATTEND Obstetrics & Gynecology
PROC: 10D00Z1 Extraction of Products of Conception, Low, Open Approach (ICD-10-PCS; principal; 2021-03-14)
DX: O34.211 Maternal care for low transverse scar from previous cesarean delivery (principal); Z37.0 Single live birth; Z3A.39 39 weeks gestation of pregnancy; O87.0 Superficial thrombophlebitis in the puerperium
CPT/HCPCS: 36415; 82803; 85014; 85018; 86850; 86900; 86901; A9270-GY; J1200; J1650; J1885; J2270; J2370; J2405; J2590; J3010; J7120

== ENCOUNTER 2021-04-28 10:40 | Emergency (ER) | payer BC ==
--- NOTE | 2021-04-28 11:13 | EDM.PDOC ---
ED HPI GENERAL MEDICAL PROBLEM - General Stated Complaint: MASTITIS Time Seen by Provider: 04/28/21 11:02 Source of Information: Reports: Patient History Limitations: Reports: No Limitations - History of Present Illness INITIAL COMMENTS - FREE TEXT/NARRATIVE: HISTORY AND PHYSICAL: History of present illness: Patient is a 30-year-old female who presents to the emergency room with complaints of left breast pain that started this morning. Patient had a scheduled on 03/14/21, has not had any post operative/delivery complications. incision site is well appearing without any concern for infection. She does breast-feed, no difficulty with milk production. This morning she woke up with a fever of 102.3, body aches and left breast pain. Due to the COVID-19 epidemic she is concerned that she may also have COVID-19, she has 2 other children at home and would like to be tested. Patient denies any headache, change in vision, syncope or near syncope. Denies any chest pain, back pain, shortness of breath or cough. Denies any abdominal pain, nausea, vomiting, diarrhea, constipation or dysuria. Has not noted any blood in urine or stool. Patient has been eating and drinking appropriately. No recent travel or sick contacts. Review of systems: As per history of present illness and below otherwise all systems reviewed and negative. Past medical history: As per history of present illness and as reviewed below otherwise noncontributory. Surgical history: As per history of present illness and as reviewed below otherwise noncontributory. Social history: See social history for further information Family history: As per history of present illness and as reviewed below otherwise noncontributory. Physical exam: General: Well developed and well nourished 30-year-old female. Alert and orientated x 3. Nontoxic in appearance and in no acute distress. Vital signs are stable and have been reviewed by me. Nursing notes were reviewed. HEENT: Atraumatic, normocephalic, pupils equal and reactive bilaterally, negative for conjunctival pallor or scleral icterus, mucous membranes moist, TMs normal bilaterally, throat clear, neck supple, nontender, trachea midline. No drooling or trismus noted. No meningeal signs. No hot potato voice noted. Lungs: Clear to auscultation bilaterally. No wheezes, rales, or rhonchi. Chest nontender. Normal work of breathing, no accessory muscles used. Heart: S1S2, regular rate and rhythm without overt murmur, gallops, or rubs. No JVD. No peripheral edema Abdomen: Soft, nondistended, nontender. Normoactive bowel sounds. Negative for masses or costovertebral tenderness. Skin: Early redness noted below the left nipple from the 8-6 o'clock position. No fluctuance. Remaining skin is intact, warm, dry. Well appearing scar, no concern for infection. No lesions or rashes noted. Hematologic: No petechiae or purpra. Mucosa appropriate color and normal nail bed color and refill. Extremities: Atraumatic, moves all extremities per self without difficulty or deficits, negative for cords or calf pain. Neurovascular unremarkable. Neuro: Awake, alert, oriented. Cranial nerves II through XII unremarkable. Cerebellum unremarkable. Motor and sensory unremarkable throughout. Exam nonfocal. Psychiatric: Mood and affect are appropriate. Normal thought process. Answering questions appropriately. Please note that the patient was seen and evaluated during the 2019 SARS-CoV-2 novel coronavirus pandemic period. Community viral transmission is ongoing at time of this encounter and the emergency department is operating under pandemic response procedures. Medical Decision Making: Patient is a 30-year-old female who is at the ER with complaints of [id number] symptoms and tenderness/mild redness of the left breast. Vital signs are stable. At this time I do not feel she needs any lab work. We will treat the mastitis. She states that her sister is allergic to penicillin, she just avoids any penicillins, not true allergy. Will place her on Keflex. She does have the with her, will swab for COVID and discharge her to home. We will call with those results, this will not change her treatment plan. Patient's COVID test is positive. I have talked with the patient about today's findings, in addition to providing specific details for plan of care. Reassessment at the time of disposition demonstrates that the patient is in no acute distress. The patient is stable for discharge, counseling was provided and we discussed in great detail signs and symptoms that would prompt them to return to the Emergency Department. Medication, follow up and supportive care measures were reviewed and discussed. Voices understanding and is agreeable to plan of care. Denies any further questions or concerns at this time. Diagnostics: COVID-19 Therapeutics: Keflex Prescription: Keflex Impression: Mastitis, left COVID 19 Plan: 1. You were evaluated today on an emergent basis. Your breast appears to have early mastitis, please take the antibiotic as directed. No need to interrupt breast-feeding, please continue to effectively pump and/or feed on both breasts as you need to continue with milk removal. 2. You can alternate Tylenol and ibuprofen as needed for pain and fever management. 3. We encourage you to follow up with your primary care provider and/or recommended specialist in the next few days for re-evaluation and further care/management. 4. If your symptoms should worsen, new symptoms develop or any of the signs and symptoms we discussed should arise please return to the emergency room or call 911 (if needed). Definitive disposition and diagnosis as appropriate pending reevaluation and review of above. left breast Pain Score (Numeric/FACES): 7 - Related Data Allergies Allergy/AdvReac Type Severity Reaction Status Date / Time Penicillins Allergy "sister Verified 03/14/21 06:26 reacted to it" Home Meds: Home Meds Pnv No.95/Ferrous Fum/Folic AC [ Vitamin Tablet] 1 tab PO DAILY 01/20/18 [History] Aspirin [Adult Low Dose Aspirin EC] 81 mg PO DAILY 03/07/21 [History] cephALEXin [Keflex 250 MG/5 ML Susp] 500 mg PO QID 5 Days #1 bottle 04/28/21 [Rx] Past Medical History HEENT History: Reports: Other (See Below) Other HEENT History: wears glasses, contacts Cardiovascular History: Reports: Other (See Below) Other Cardiovascular History: currently has a blood clot in a varicose vein right leg- is taking ASA 81mg and is using heat and elevation Respiratory History: Reports: None Gastrointestinal History: Reports: Hemorrhoids, Other (See Below) Other Gastrointestinal History: new this Genitourinary History: Reports: None [employer] History: Reports: , Spontaneous Musculoskeletal History: Reports: Fracture Other Musculoskeletal History: hx of fx foot and finger (approx 10-15 yr ago) Neurological History: Reports: None Psychiatric History: Reports: None Endocrine/Metabolic History: Reports: None Hematologic History: Reports: None Immunologic History: Reports: None Oncologic (Cancer) History: Reports: None Dermatologic History: Reports: None - Infectious Disease History Infectious Disease History: Reports: Chicken Pox, Influenza - Past Surgical History Head Surgeries/Procedures: Reports: None HEENT Surgical History: Reports: None Other HEENT Surgeries/Procedures: [place] tooth extraction on 2011 Cardiovascular Surgical History: Reports: None Respiratory Surgical History: Reports: None GI Surgical History: Reports: None Female Surgical History: Reports: Section Other Female Surgeries/Procedures: previous x2 Endocrine Surgical History: Reports: None Neurological Surgical History: Reports: None Musculoskeletal Surgical History: Reports: None Oncologic Surgical History: Reports: None Dermatological Surgical History: Reports: None Social & Family History - Family History HEENT: Reports: None Cardiac: Reports: Hypertension Respiratory: Reports: None GI: Reports: None : Reports: None OBGYN: Reports: None Musculoskeletal: Reports: None Neurological: Reports: None Psychiatric: Reports: None Endocrine/Metabolic: Reports: None Hematologic: Reports: None Immunologic: Reports: None Dermatologic: Reports: None Oncologic: Reports: Colon - Caffeine Use Caffeine Use: Reports: Coffee Caffeine Use Comment: cup of coffee a day ED ROS GENERAL - Review of Systems Review Of Systems: Comprehensive ROS is negative, except as noted in HPI. ED EXAM, SKIN/RASH Exam: See Below (See dictation) Course - Vital Signs Last Recorded V/S: Last Vital Signs Temp 98.5 F 04/28/21 11:00 Pulse 94 04/28/21 11:55 Resp 16 04/28/21 11:55 BP 110/72 04/28/21 11:55 Pulse Ox 99 04/28/21 11:55 - Orders/Labs/Meds Labs: Laboratory Tests 04/28/21 Range/Units 11:25 SARS-CoV-2 RNA (SERGE) POSITIVE H (NEGATIVE) Meds: Medications Discontinued Medications Generic Name Dose Route Start Last Admin Trade Name Elaina PRN Reason Stop Dose Admin Cephalexin 500 mg 04/28/21 11:18 04/28/21 11:35 Cephalexin 500 Mg Cap PO 04/28/21 11:19 Not Given ONETIME ONE Departure - Departure Time of Disposition: 11:17 Disposition: Home, Self-Care 01 Clinical Impression: Mastitis, COVID-19 - Discharge Information Prescriptions: cephALEXin [Keflex 250 MG/5 ML Susp] 500 mg PO QID 5 Days #1 bottle Instructions: Mastitis, [id number] Referrals: Zaria Santacruz MD [Primary Care Provider] - Forms: ED Department Discharge Additional Instructions: The following information is given to patients seen in the emergency department who are being discharged to home. This information is to outline your options for follow-up care. We provide all patients seen in our emergency department with a follow-up referral. The need for follow-up, as well as the timing and circumstances, are variable depending upon the specifics of your emergency department visit. If you don't have a primary care physician on staff, we will provide you with a referral. We always advise you to contact your personal physician following an emergency department visit to inform them of the circumstance of the visit and for follow-up with them and/or the need for any referrals to a consulting specialist. The emergency department will also refer you to a specialist when appropriate. This referral assures that you have the opportunity for follow-up care with a specialist. All of these measure are taken in an effort to provide you with optimal care, which includes your follow-up. Under all circumstances we always encourage you to contact your private physician who remains a resource for coordinating your care. When calling for follow-up care, please make the office aware that this follow-up is from your recent emergency room visit. If for any reason you are refused follow-up, please contact the [facility] at and asked to speak to the emergency department charge nurse. [facility] [address] [place], [place] [id number] [place] [address] Thank you for choosing the [facility] emergency department in [place] for your medical needs today. It was a pleasure caring for you. Today you were seen in the emergency department for mastitis Your prescription was electronically sent to: [facility] 1. You were evaluated today on an emergent basis. Your breast appears to have early mastitis, please take the antibiotic as directed. No need to interrupt breast-feeding, please continue to effectively pump and/or feed on both breasts as you need to continue with milk removal. 2. You can alternate Tylenol and ibuprofen as needed for pain and fever management. 3. We encourage you to follow up with your OBGYN in the next few days for re- evaluation and further care/management. 4. If your symptoms should worsen, new symptoms develop or any of the signs and symptoms we discussed should arise please return to the emergency room or call 911 (if needed). Sepsis Event Note (ED) - Focused Exam Vital Signs: Vital Signs Temp Pulse Resp BP Pulse Ox 04/28/21 11:55 94 16 110/72 99 04/28/21 11:00 98.5 F 96 16 107/69 99
[2021-04-28] MEDS ORDERED: Cephalexin 500 MG Cap PO ONE (11:18)
== END 2021-04-28 11:59 | disposition home or self-care (01) ==
LOC: MW.ED 10:40
DX: U07.1 COVID-19 (principal); N61.0 Mastitis without abscess; Z88.0 Allergy status to penicillin
CPT/HCPCS: 99283; U0002

== ENCOUNTER 2023-12-27 10:55 | Emergency (ER) | payer BC ==
[2023-12-27] MEDS: Ibuprofen Susp 100 MG/5 ML 10 ML UD Cup PO ONE (13:47)
== END 2023-12-27 14:16 | disposition home or self-care (01) ==
LOC: MW.ED 10:55
DX: I80.01 Phlebitis and thrombophlebitis of superficial vessels of right lower extremity (principal); Z88.0 Allergy status to penicillin; Z75.8 Other problems related to medical facilities and other health care
CPT/HCPCS: 93971; 99283; A9270